=== PATIENT | female | born 1945 | race Asian ===

== ENCOUNTER 2023-09-11 19:32 | Emergency (ER) | payer SELFPAY ==
[~2023-09-11] VITALS: Ht 157.5 cm; Wt 54.4 kg
[2023-09-11 20:14] VITALS: BP_SYST 161; PULSE 67; RESP 20; TEMP 98; O2SAT 100
[2023-09-11] MEDS: MORPHINE 4 MG INJ. 4 MG/ML VIAL IVP ONE (21:22)
[2023-09-11] MEDS: LIDOCAINE 1% 10 MG/ML, 20 ML MDV INJ ONE (22:30)
[2023-09-12] MEDS: PROPOFOL 200MG/ 20ML VIAL (DIPRIVAN) IV ONE (00:09)
[2023-09-12] MEDS ORDERED: ACET-2634 PO (01:36)
[2023-09-12 01:47] VITALS: BP_SYST 162; PULSE 80; RESP 13; TEMP 98; O2SAT 97
== END 2023-09-12 01:47 | disposition home or self-care (01) ==
LOC: SED 19:32
DX: S52.591A Other fractures of lower end of right radius, initial encounter for closed fracture (principal); Z79.899 Other long term (current) drug therapy; W01.0XXA Fall on same level from slipping, tripping and stumbling without subsequent striking against object, initial encounter; Y93.89 Activity, other specified; Y92.89 Other specified places as the place of occurrence of the external cause; Y99.8 Other external cause status
CPT/HCPCS: 25605; 73110 ×2; 99152; 99285; 73100; 96374; J2704; J2270